=== PATIENT | male | born 1995 | race African-American/Black ===

== ENCOUNTER 2018-01-14 18:26 | Emergency (ER) | payer OTHER ==
--- NOTE | 2018-01-14 19:37 | EDPHY ---
H & P Smoking Status: Never smoked Time Seen by Provider: 01/14/18 19:25 HPI/ROS: CHIEF COMPLAINT: right index finger laceration HISTORY OF PRESENT ILLNESS: 22-year-old male with up-to-date tetanus sustained accidental laceration was right index finger distal phalanx when he was taking out the garbage and did not know those piece of broken glass, sustained laceration from broken glass. No paresthesia. No sensory motor deficit. PHYSICAL EXAM (Prior to examination, patient consented to physical exam, hands were washed and my usual and customary physical exam procedures followed) 1) GENERAL: Well-developed, well-nourished, alert and oriented. Appears to be in no acute distress. 2) HEAD: Normocephalic 3) HEENT: sclera anicteric 4) LUNGS: Breathing comfortably. 5) SKIN: Right index finger distal phalanx 1.5 cm laceration linear well- demarcated 6) MUSCULOSKELETAL: Right index finger: FDS FDP intact. 7) NEUROLOGIC: Full sensation two-point discrimination caught tacked (Gil Dunlap) Constitutional: Initial Vital Signs Temperature (C) 36.9 C 01/14/18 18:36 O2 Delivery Mode Room Air Allergies/Adverse Reactions: No Known Allergies Allergy (Unverified 01/14/18 18:38) MDM/Departure - MDM Imaging Results: Images reviewed myself (Gil Dunlap) Procedures: Procedure: Laceration repair. I explained the indications, risks and benefits for both laceration repair and anesthetic administration. Verbal consent was obtained from the patient . The laceration on the right index finger was anesthetized using 0.5% bupivicaine without epinephrine digital nerve block. After anesthetic administered the patient was observed for a period of time and had no apparent adverse effects. The wound was cleaned, prepped, draped in normal sterile fashion and explored to its base. No foreign body seen, no foreign bodies palpated. There were no deep structures involved. No tendon injury was identified. The wound was repaired with 5 simple interrupted 5 O Prolene sutures. The wound repair was complex. The procedure was performed by myself. Patient has been informed that scarring will occur, although efforts have been made to minimize this. (Gil Dunlap) ED Course/Re-evaluation: I did not see this patient while he was in the emergency department. However his care was discussed with the PA while the patient was in the department. I agree with treatment plan and management (Celestino Vargas) - Depart Disposition: Home, Routine, Self-Care Clinical Impression: Laceration of right index finger Condition: Good Instructions: Laceration (ED) Additional Instructions: Return to the ER if you develop redness, swelling, discharge, warmth to the wound, red streaks going up your arm, or any other symptoms that concern you. Referrals: Return, to the ER in 10 days for suture removal [Other] - As per Instructions
[2018-01-24 19:47] VITALS: BP 126/71
== END 2018-01-14 20:49 | disposition home or self-care (01) ==
PROC: 0HQFXZZ Repair Right Hand Skin, External Approach (ICD-10-PCS; principal; 2018-01-14)
DX: S61.210A Laceration without foreign body of right index finger without damage to nail, initial encounter (principal); W25.XXXA Contact with sharp glass, initial encounter